=== PATIENT | male | born 1985 | race Asian ===

== ENCOUNTER 2019-09-29 19:50 | Emergency (ER) | payer OTHER ==
[~2019-09-29] VITALS: Ht 182.9 cm; Wt 74.8 kg
[2019-09-29 20:06] VITALS: BP_SYST 125
--- NOTE | 2019-09-29 23:37 | NUR ---
Pt ambulatory to bed hallway for evaluation
--- NOTE | 2019-09-29 23:37 | NUR ---
ER at bedside examining patient.
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
--- NOTE | 2019-09-30 00:40 | NUR ---
Pt. resting in bed at this time and does not appear to be in distress. VSS. Will continue to monitor.
[2019-09-30 00:53] LABS: BASOPHILS % (AUTO) 0.6 % (0.0-2.0); EOSINOPHILS % (AUTO) 0.5 % (0.0-4.0); HEMATOCRIT 43.8 % (36-54); HEMOGLOBIN 15.1 g/dL (14.0-18.0); LYMPHOCYTES # (AUTO) 2.3 K/uL (1.0-5.5); LYMPHOCYTES % (AUTO) 25.4 % (20.5-51.5); MEAN CORPUSCULAR HEMOGLOBIN 30 pg (27-31); MEAN CORPUSCULAR HGB CONC 34 % (32-36); MEAN CORPUSCULAR VOLUME 86 fL (79.0-98.0); MONOCYTES # (AUTO) 0.8 K/uL (0.0-1.0); MONOCYTES % (AUTO) 8.8 % (1.7-9.3); NEUTROPHILS # (AUTO) 5.8 K/uL (1.8-7.7); NEUTROPHILS % (AUTO) 64.7 % (40.0-70.0); PLATELET COUNT (AUTO) 216 K/uL (130-430); RED CELL DISTRIBUTION WIDTH 12.6 % (9.0-15.0)
[2019-09-30 00:54] LABS: CALCIUM 9.5 mg/dL (8.4-11.0); CREATININE 0.99 mg/dL (0.55-1.30); POTASSIUM 3.9 mmol/L (3.5-5.1)
[2019-09-30 00:59] LABS: PROTHROMBIN TIME 9.8 SECS (9.5-12.5)
[2019-09-30 01:00] LABS: ALBUMIN 4.9 g/dL (3.4-4.8)
--- NOTE | 2019-09-30 01:40 | NUR ---
18G angiocath placed to the right AC.
[2019-09-30 02:20] VITALS: BP_SYST 125
--- NOTE | 2019-09-30 02:20 | NUR ---
Patient to be transferred to [facility]. Is being transferred due to higher level of care. Receiving facility has accepting physician and available space. ER physician has signed transfer form. Patient or responsible constitution party has agreed to transfer and signed form. Patient belongings inventoried and will be sent with patient. Copy of nursing notes, lab reports, EKG, Physicians Orders and X-rays to be sent with patient. Report called to ELIJAH Cooley at receiving facility. Receiving physician is Dr. Chung. Ambulance service has been called for transfer. ETA 2:30.
--- NOTE | 2019-09-30 02:20 | NUR ---
Note undone in ED - 09/30/19 at 0237 by SARAH Patient to be transferred to [facility]. Is being transferred due to higher level of care. Receiving facility has accepting physician and available space. ER physician has signed transfer form. Patient or responsible alliance party has agreed to transfer and signed form. Patient belongings inventoried and will be sent with patient. Copy of nursing notes, lab reports, EKG, Physicians Orders and X-rays to be sent with patient. Report called to at receiving facility. Receiving physician is Dr. Chung. [facility] service has been called for transfer. ETA is 02:30.
== END 2019-09-30 02:20 | disposition short-term general hospital (02) ==
LOC: SED 19:50
DX: S02.32XA Fracture of orbital floor, left side, initial encounter for closed fracture (principal); S02.842A Fracture of lateral orbital wall, left side, initial encounter for closed fracture; Y04.0XXA Assault by unarmed brawl or fight, initial encounter; Y93.89 Activity, other specified; Y92.89 Other specified places as the place of occurrence of the external cause; Y99.8 Other external cause status
CPT/HCPCS: 36415; 70450-TC; 70486-TC; 80053; 82962; 85025; 85610-TC; 99285